=== PATIENT | female | born 1970 | race Caucasian/White ===

== ENCOUNTER → 2024-02-22 14:03 | Outpatient (REF) | payer BC, SELFPAY | LOC: WDC 14:03 | PROVIDERS: ATTENDING PHYSICIAN Nurse Practitioner Adult Health; FAMILY PHYSICIAN Physician Assistant Medical | DX: Z12.31 Encounter for screening mammogram for malignant neoplasm of breast (principal) | CPT/HCPCS: 77063; 77067 ==

== ENCOUNTER 2024-04-28 06:53 | Day surgery (SDC) | payer BC, SELFPAY ==
[2024-04-17 14:19] VITALS: BMI 21.9
[2024-04-28] VITALS (17 sets, daily range): BP systolic 91–139; BP diastolic 58–110; BMI 21.9
[2024-04-28] MEDS: IC GREEN 2.5 MG IV (07:08)
[2024-04-28] MEDS: TYLENOL 1000 MG PO (07:09)
[2024-04-28] MEDS: TRANSDERM-SCOP 1 PATCH TRANSDERM (07:23)
[2024-04-28] MEDS: EMEND 40 MG PO (07:23)
--- NOTE | 2024-04-28 08:47 | OR.RPT ---
Operative Report
Operative Report
Primary Surgeon: Yanelis
Assisting: Yakelin VIZCARRA
Pre-op Diagnosis: Biliary colic
Post-op Diagnosis: Same
Procedure Performed: Robot assisted laparoscopic cholecystectomy with cholangiogram
Anesthesia Type: GETA
Specimen / Cultures: Gallbladder
Estimated Blood Loss: 2cc
Complications: None immediate
Operative Findings: Floppy intrahepatic gallbladder, cholangiogram with quick flow into duodenum CBD/CHD without obvious filling defects
Date of Surgery:� 04/28/24
Indications: This 54F developed biliary colic. Work-up showed gallstones, mildly elevated liver enzymes and no ductal dilation. Laparoscopic cholecystectomy with robotic assist and cholangiogram was elected.
Description of procedure: The patient was placed on the operating table in the supine position. General anesthesia was induced. A time-out was completed verifying correct patient, procedure, site, positioning, and special equipment prior to
beginning this procedure. An orogastric tube was placed. The abdomen was prepped and draped in the usual sterile fashion. A stab incision was made in left upper quadrant and the Veress needle was inserted. Proper position was confirmed by aspiration
and saline meniscus test. The abdomen was insufflated with carbon dioxide to a pressure of 12mmHg. The patient tolerated insufflation well.
A 8mm trocar was then inserted above the umbilicus. The laparoscope was inserted and the abdomen inspected. No injuries from initial trocar placement or Veress needle insertion were noted. Additional 8mm trocars were then inserted in the following
locations: two in the right lower quadrant and to the left of the umbilicus and just above. The abdomen was inspected and no abnormalities were found. The table was placed in the reverse Trendelenburg position with the right side up. The dome of the
gallbladder was grasped with an atraumatic grasper and retracted over the dome of the liver. Dense omental adhesions were carefully teased down with gently blunt sweeps and judicious hook cautery. The infundibulum was then grasped with an atraumatic
grasper and retracted toward the right lower quadrant. This maneuver exposed Calot�s triangle. The peritoneum overlying the gallbladder infundibulum was then incised and the cystic duct and cystic artery identified and circumferentially dissected so
that a clear view of the liver was achieved through a window between the cystic duct an cystic artery. At this time, the only two structures going into the gallbladder were the cystic artery and cystic duct. The common duct was identified with ICG
and protected.
A mike was made in the cystic duct and a cholangiogram catheter was passed through the abdominal wall with a suture passer and threaded into the cystic duct and secured with a 2-0 silk. The cholangiogram showed opacification of common bile and
common hepatic ducts with quick flow into the duodenum without filling defects. The catheter was removed.
The cystic duct was then doubly clipped and divided. The cystic artery was controlled with bipolar and divided. The gallbladder was then dissected from its peritoneal attachments by electrocautery. The posterior plane was fibrotic. The gallbladder
was removed using an endoscopic retrieval bag placed through the umbilical port. The gallbladder was passed off the table as a specimen. The gallbladder fossa was closely inspected. There was no evidence of bleeding from the gallbladder fossa or
cystic artery or leakage of the bile from the cystic duct stump. The umbilical trocar site was closed at the fascial level with 2-0 PDS. Secondary trocars were removed under direct vision and noted to be hemostatic. The abdomen was allowed to
collapse. The skin was closed with subcuticular sutures of 4-0 monocryl and topical skin adhesive. The orogastric tube was removed.
The patient tolerated the procedure well and was taken to the postanesthesia care unit in stable condition.
The assistance of Yakelin VIZCARRA was required due to the complexity of the procedure. During the procedure she assisted with retraction, intra-abdominal access, and closure of the wound.
[2024-04-28] MEDS: ZOFRAN 4 MG IV (09:04)
[2024-04-28] MEDS: DILAUDID 0.5 MG IV ×2 (09:09→10:03)
[2024-04-28] MEDS: VALIUM INJECTION 2.5 MG IV ×2 (09:17→09:39)
[2024-04-28] MEDS: COMPAZINE 5 MG IV (10:36)
--- NOTE | 2024-04-28 10:46 | SUR.PHASEII ---
Pt c/o nausea after having some gingerale and saltines and pt medicated with compazine.
== END 2024-04-28 12:40 | disposition home or self-care (01) ==
LOC: SDS 06:53
PROVIDERS: ATTENDING PHYSICIAN Surgery; FAMILY PHYSICIAN Physician Assistant Medical
DX: K80.10 Calculus of gallbladder with chronic cholecystitis without obstruction (principal); K66.0 Peritoneal adhesions (postprocedural) (postinfection); Q44.1 Other congenital malformations of gallbladder
CPT/HCPCS: 47563; 88304; 36415; 74300; 76000; 93005

== ENCOUNTER → 2025-02-22 12:55 | Outpatient (REF) | payer BC, SELFPAY | LOC: WDC 12:55 | PROVIDERS: ATTENDING PHYSICIAN Nurse Practitioner Adult Health | DX: Z12.31 Encounter for screening mammogram for malignant neoplasm of breast (principal) | CPT/HCPCS: 77063; 77067 ==